=== PATIENT | male | born 1985 | race Caucasian/White ===

== ENCOUNTER → 2017-01-17 | Outpatient (CLI) | payer OTHER | LOC: EXRD 08:16 | DX: R07.9 Chest pain, unspecified (principal) | CPT/HCPCS: 71020 ==

== ENCOUNTER → 2017-01-24 | Outpatient (CLI) | payer OTHER | LOC: KOH-I 10:00 | DX: R10.84 Generalized abdominal pain (principal); R07.9 Chest pain, unspecified; R11.2 Nausea with vomiting, unspecified; R16.0 Hepatomegaly, not elsewhere classified | CPT/HCPCS: 76705 ==

== ENCOUNTER → 2017-02-06 | Outpatient (CLI) | payer OTHER | LOC: NM 12:41 | DX: R07.9 Chest pain, unspecified (principal) | CPT/HCPCS: 78452; 93017; A9502 ==

== ENCOUNTER → 2017-02-13 | Outpatient (CLI) | payer OTHER | LOC: NM 09:00 | DX: R10.84 Generalized abdominal pain (principal); R07.9 Chest pain, unspecified | CPT/HCPCS: 78226; A9537 ==

== ENCOUNTER → 2021-04-13 | Day surgery (SDC) | payer OTHER ==
[~2021-04-13] MED LIST: CO-Q-10 PO; CRESTOR10 MG PO; CVS STOOL SOFT PO; CYCLOBENZAPRINE10 MG PO; DOCUSATE CALCI240 MG PO; GLUCOSAMINE &1 EACH PO; GUAIFENESIN400 MG PO; MAGNESIUM250 MG PO; MELATONIN5 MG PO; MEN'S MULTIVIT1 EACH PO; MUCINEX600 MG PO; NORCO 5-325 TA1 EACH PO; NORVASC10 MG PO; OMEGA 3 FISH O1 EACH PO; OMEPRAZOLE20 M1 PO; OMEPRAZOLE40 MG PO; ONE DAILY1 EACH PO; SINGULAIR10 MG PO; VENTOLIN HFA 66.7 GM INH; VITAMIN B-121000 MCG PO; VITAMIN B12 PO; VITAMIN C500 M4 PO; VITAMIN D31000 UNI1 PO; VITAMIN D350 MC3 PO; XYZAL5 MG PO; ZOFRAN ODT 4 MG4 MG PO
== END | disposition home or self-care (01) ==
LOC: OR 05:42
DX: K60.2 Anal fissure, unspecified (principal); K64.4 Residual hemorrhoidal skin tags; F41.9 Anxiety disorder, unspecified; F32.9 Major depressive disorder, single episode, unspecified; M19.90 Unspecified osteoarthritis, unspecified site; J45.909 Unspecified asthma, uncomplicated; E78.5 Hyperlipidemia, unspecified; K21.9 Gastro-esophageal reflux disease without esophagitis; F17.210 Nicotine dependence, cigarettes, uncomplicated; Z79.899 Other long term (current) drug therapy
CPT/HCPCS: J0690; J1100; J1170; J2001; J2250; J2405; J2550; J2704; J3010; J7030; J7120

== ENCOUNTER → 2021-04-15 | Outpatient (CLI) | payer OTHER | LOC: KOH-I 03-30 14:30 | DX: N32.89 Other specified disorders of bladder (principal); R35.1 Nocturia | CPT/HCPCS: 76857 ==

== ENCOUNTER → 2022-01-17 | Outpatient (CLI) | payer OTHER | LOC: EXRD 08:19 | DX: M79.642 Pain in left hand (principal); M79.641 Pain in right hand; M79.89 Other specified soft tissue disorders | CPT/HCPCS: 73130 ==